=== PATIENT | male | born 1980 | race Two or more races ===

== ENCOUNTER 2023-11-01 12:48 | Inpatient (IN) | payer OTHER ==
[2023-11-01 13:41] VITALS: BMI 29.0
[2023-11-01] MEDS ORDERED: POLYETHYLENE GLYCOL (HEALTHYLAX) 3350 17 GM PACKET PO PRN (16:42)
[2023-11-01] MEDS ORDERED: NALOXONE HCL 0.4 MG/ML VIAL IM PRN (16:42)
[2023-11-01] MEDS ORDERED: guaiFENesin 600 MG TABLET.ER (FP) PO PRN (16:42)
[2023-11-01] MEDS ORDERED: BENZONATATE 200 MG CAPSULE PO PRN (16:42)
[2023-11-01] MEDS ORDERED: NICOTINE POLACRILEX 2 MG GUM BUC PRN (16:42)
[2023-11-01] MEDS ORDERED: NALOXONE (NARCAN) HCL 4 MG/0.1 ML SPRAY NS PRN (16:42)
[2023-11-01] MEDS ORDERED: ACETAMINOPHEN 325 MG TABLET (FP) PO PRN (16:42)
[2023-11-01] MEDS ORDERED: ONDANSETRON *ODT* 4 MG TABLET SL PRN (16:42)
[2023-11-01] MEDS ORDERED: chlordiazePOXIDE HCL 25 MG CAPSULE PO PRN (16:42)
[2023-11-01] MEDS ORDERED: DICYCLOMINE HCL 10 MG CAPSULE PO PRN (16:42)
[2023-11-01] MEDS ORDERED: BENZOCAINE/MENTHOL (CHLORASEPTIC ) LOZENGE MM PRN (16:42)
[2023-11-01] MEDS ORDERED: MAGNESIUM HYDROX 2400MG/30ML ORAL SUSPENSION 30 ML CUP PO PRN (16:42)
[2023-11-01] MEDS ORDERED: IBUPROFEN 400 MG TABLET (FP) PO PRN (16:42)
[2023-11-01] MEDS: chlordiazePOXIDE HCL 25 MG CAPSULE PO SCH (17:17)
[2023-11-01] MEDS: PRENATAL VITAMINS W/ FOLIC ACID TABLET (FP) PO SCH (17:19)
[2023-11-01] MEDS: IBUPROFEN 600 MG TABLET (FP) PO PRN (18:18)
[2023-11-01] MEDS: METHOCARBAMOL 500 MG TABLET PO PRN (22:07)
[2023-11-01] MEDS: hydrOXYzine PAMOATE 25 MG CAPSULE (FP) PO PRN (22:07)
[2023-11-01] MEDS: MELATONIN 5 MG TABLETS PO SCH (22:07)
[2023-11-01] MEDS: THIAMINE 100 MG TABLET PO SCH (22:07)
[2023-11-02 11:01] LABS: HEMATOCRIT 40.4 % (35.4-49); HEMOGLOBIN 13.8 GM/dL (11.7-16.9); MCH 34.7 pg (25.7-33.7); MEAN PLT VOLUME 7.6 fl (7.5-11.1); PLATELET COUNT 138 10^3/uL (134-434); RBC 3.96 M/mm3 (4.00-5.60); RDW 13.3 % (11.9-15.9); WHITE BLOOD COUNT 2.8 K/mm3 (4.0-10.0)
[2023-11-02 12:03] LABS: CHLORIDE 109 mmol/L (98-107); POTASSIUM 3.4 mmol/L (3.5-5.1); SODIUM 141 mmol/L (136-145)
[2023-11-02 12:07] LABS: ANION GAP 6 mmol/L (4-13); BLOOD UREA NITROGEN 13.8 mg/dL (7-18); CALCIUM 8.6 mg/dL (8.5-10.1); CO2 26 mmol/L (21-32); GLUCOSE,RANDOM 125 mg/dL (74-106)
[2023-11-02 12:09] LABS: SGPT/ALT 22 U/L (13-61)
[2023-11-02 12:10] LABS: SGOT/AST 24 U/L (15-37)
[2023-11-02 12:11] LABS: BILIRUBIN,TOTAL 0.6 mg/dL (0.2-1); TOT PROT 5.6 g/dl (6.4-8.2)
[2023-11-02 12:12] LABS: ALK PHOS 89 U/L (45-117)
[2023-11-02] MEDS: LISINOPRIL 20 MG TABLET PO SCH (12:24)
[2023-11-02] MEDS: HYDROCHLOROTHIAZIDE 25 MG TABLET (FP) PO SCH (12:24)
[2023-11-02] MEDS: ALBUTEROL SO4 HFA INHALER IH SCH (12:40)
[2023-11-02] MEDS: POTASSIUM CHLORIDE ORAL LIQUID 20 MEQ/15 ML PO ONE (14:53)
[2023-11-02] MEDS: traZODone HCL 100 MG TABLET (FP) PO SCH (22:52)
[2023-11-02] MEDS: ATORVASTATIN CA 20 MG TABLET (FP) PO SCH (22:52)
[2023-11-03] MEDS: chlordiazePOXIDE HCL 25 MG CAPSULE PO SCH (05:53)
[2023-11-03] MEDS: SERTRALINE HCL 50 MG TABLET (FP) PO SCH (10:37)
[2023-11-03] MEDS: LOPERAMIDE HCL 2 MG CAPSULE PO PRN (11:27)
[2023-11-03] MEDS: FOLIC ACID 1 MG TABLET (FP) PO SCH (11:28)
[2023-11-03 11:43] LABS: POTASSIUM 3.6 mmol/L (3.5-5.1)
[2023-11-03 11:54] LABS: BLOOD UREA NITROGEN 18.8 mg/dL (7-18); CALCIUM 8.9 mg/dL (8.5-10.1)
[2023-11-03 11:58] LABS: CREATININE 0.8 mg/dL (0.55-1.3)
[2023-11-03 13:36] LABS: HIV INTERPRETATION NEGATIVE (NEGATIVE)
[2023-11-04] MEDS ORDERED: chlordiazePOXIDE HCL 10 MG CAPSULE PO PRN
[2023-11-04] MEDS: chlordiazePOXIDE HCL 10 MG CAPSULE PO SCH (05:42)
[2023-11-04] MEDS: ALBUTEROL SO4 HFA INHALER IH PRN (10:26)
[2023-11-04] MEDS: MAG HYDROX/AL HYDROX/SIMETH 30 ML UNIT-DOSE CUP PO PRN (12:22)
[2023-11-04] MEDS: BISMUTH SUBSALICYLATE 524 MG/30 ML PO PRN (19:25)
[2023-11-05] MEDS: chlordiazePOXIDE HCL 10 MG CAPSULE PO SCH (06:04)
[2023-11-06] MEDS: chlordiazePOXIDE HCL 10 MG CAPSULE PO ONE (05:54)
[2023-11-07 10:56] VITALS: BP 127/74; PULSE 68; RESP 16; TEMP 97.8
== END 2023-11-07 11:41 | disposition other institution (70) | DRG 775 ==
LOC: YASAS 12:48 → Y3N 16:32
PROVIDERS: ADMIT Allergy & Immunology; ATTEND Surgery
PROC: HZ2ZZZZ Detoxification Services for Substance Abuse Treatment (ICD-10-PCS; principal; 2023-11-01)
DX: F10.230 Alcohol dependence with withdrawal, uncomplicated (principal); F17.210 Nicotine dependence, cigarettes, uncomplicated; F19.24 Other psychoactive substance dependence with psychoactive substance-induced mood disorder; F31.9 Bipolar disorder, unspecified; F25.9 Schizoaffective disorder, unspecified; E87.6 Hypokalemia; I10 Essential (primary) hypertension; J45.909 Unspecified asthma, uncomplicated; Z59.00 Homelessness unspecified
CPT/HCPCS: 36415; 80048; 80053; 80305; 80307; 85027; 86780; 87389; 93005; 93010